=== PATIENT | male | born 1980 | race Caucasian/White ===

== ENCOUNTER 2023-11-29 08:07 | Day surgery (SDC) | payer BC ==
[2023-11-28 11:39] LABS: Absolute Lymphocytes (CBC) 1.7 K/uL (0.7-4.9); Absolute Monocytes 0.8 K/uL (0.1-1.3); Absolute Neutrophil 5.2 K/uL (1.8-8.0); Basophils % 0.3 % (0-1.3); Eosinophils % 0.3 % (0-4.4); Hematocrit 52.3 % (39.6-49.0); Hemoglobin 17.4 g/dL (13.6-17.9); Lymphocytes % 21.3 % (15.3-44.8); MCH 30.9 pg (27.0-35.0); MCHC 33.3 g/dL (32.0-36.0); MCV 92.7 fL (80-100); Monocytes % 10.8 % (3.3-12.3); Neutrophils % 67.3 % (41.7-73.7); Platelets 307 thou/uL (152-406); RBC Red Blood Cell Count 5.64 M/uL (4.33-5.43); Red Cell Distribution Width 13.5 % (12.1-15.2)
[2023-11-28 11:44] LABS: PT Prothrombin Time 11.8 SECONDS (9.5-12.5); PTT, Activated Partial Thromb 30.4 SECONDS (24.3-36.9); Protime INR 1.07
--- NOTE | 2023-11-28 11:48 | RAD REPORT ---
EXAM DESCRIPTION: Kay Reyes (2 Views)11/28/2023 11:31 am CLINICAL HISTORY: Preop for bicep surgery Hypertension COMPARISON: None FINDINGS: The lungs appear clear of acute infiltrate. The heart is normal size IMPRESSION: No acute abnormalities displayed
[2023-11-28 11:50] LABS: Anion Gap 9.9 mEq/L (5.0-15.0); Potassium 3.9 mEq/L (3.5-5.1)
--- NOTE | 2023-11-28 12:12 | EKG ---
Test Date: 2023-11-28 Test Time: 11:18:30 Bee Raiser: KAYLA MEASUREMENT RESULTS: Intervals: Rate: 84 MS: 126 QRSD: 92 QT: 352 QTc: 415 Basile: P: 61 MS: 126 QRS: 80 T: 48 INTERPRETIVE STATEMENTS: Normal sinus rhythm Normal ECG No previous ECG available for comparison Electronically Signed On 11-28-23 12:12:11 CDT by Kofi Mcmanus
[2023-11-29] MEDS: Ringers Lactate 1,000 ML IV ONE (08:30)
[2023-11-29] MEDS ORDERED: KETOROLAC 30 MG/ML INJ ONE (10:06)
[2023-11-29] MEDS ORDERED: LIDOCAINE 2% MPF 5 ML VIAL ONE (10:06)
[2023-11-29] MEDS ORDERED: ONDANSETRON 4 MG/2 ML VIAL ONE (10:06)
[2023-11-29] MEDS ORDERED: FENTANYL CITR 100 MCG/2 ML ONE (10:06)
[2023-11-29] MEDS ORDERED: dexAMETHasone 10 MG/ML VIAL ONE (10:06)
[2023-11-29] MEDS ORDERED: MIDAZOLAM HCL 2 MG/2 ML INJ ONE (10:06)
[2023-11-29] MEDS ORDERED: propofoL 200 MG/20 ML VIAL IV ONE (10:06)
[2023-11-29] MEDS: CEFAZOLIN SODIUM 1 GM/VIAL ONE (10:45)
[2023-11-29] MEDS ORDERED: NS 0.9% VIAL 10 ML ONE (11:22)
[2023-11-29] MEDS ORDERED: EPHEDRINE SULF 50 MG/ML VIAL ONE (11:23)
[2023-11-29] MEDS ORDERED: Ringers Lactate 1,000 ML IV ONE (11:39)
[2023-11-29] MEDS ORDERED: HYDROMORPHONE HCL 1 MG/ML INJ ONE (12:01)
--- NOTE | 2023-11-29 13:35 | P.BOP ---
Preoperative diagnosis: right distal biceps tendon rupture Postoperative diagnosis: same Primary procedure: right anterior elbow exploration Metal Extrusion Supervisor: NONE,NONE Estimated blood loss: 10 cc Specimen: none Findings: see dictation Anesthesia: General Complications: None Implants: none Fluids & blood products: per anesthesia record Transferred to: Recovery Room Condition: Good
[2023-11-29] MEDS: HYDROMORPHONE HCL 1 MG/ML INJ ONE (13:50)
[2023-11-29] MEDS: HYDROCODONE/APAP 5/325 MG TAB ONE (14:49)
[2023-11-29 15:43] VITALS: BP 137/89; TEMP 97.2; O2SAT 95
--- NOTE | 2023-11-30 01:35 | OP ---
Date of Procedure: 11/29/2023 Surgeon: Bear Bess MD Preoperative Diagnosis: Right distal biceps rupture. Postoperative Diagnosis: Right distal biceps rupture. Procedures Performed: Exploration of right elbow with attempted distal biceps repair. Anesthesia: General LMA. Fluids: Per Anesthesia record. Estimated Blood Loss: 10 cc. Complications: None. Implants: None. Indication For Procedure: Keyon is a 43-year-old male, who presented to my clinic with signs, symptom s, and MRI findings consistent with a right distal biceps tendon rupture. I discussed the patient at length risks and benefits associated with operative and nonoperative treatment measures. He express ed understanding and elected to proceed with operative treatment. Description Of Procedure: After informed consent was obtained, the patient was identified in the pre operative holding area. The right upper extremity was marked. The patient was then brought back to the operating room, transferred to the operating table in supine fashion, placed under general LMA an esthesia. The right upper extremity was then prepped and draped in usual sterile fashion. A time-ou t was initiated. The correct patient and procedure confirmed and identified. The patient did receiv e his preoperative prophylactic antibiotics. Approximately, a 5 cm longitudinal incision was made ce ntered over the radial tuberosity. Dissection was then taken down through the fascia and lateral ant ebrachial cutaneous nerve was protected. Dissection was then brought into the antecubital fossa. Th e incision was extended as there are no biceps tendon stump could be identified. The incision was br ought to the antecubital fossa. The wound was then irrigated thoroughly with normal saline. Milking maneuver was placed on the biceps muscle belly to help expose the distal biceps tendon stump; merry suarez, this was not encountered. There did appears to be some tendon scarring near the lacertus fibrosus consistent with a possible incomplete rupture of the tendon. Retraction was then performed proximal and again no tendon itself could be identified. Intraoperatively, I went to speak with the patient' s as the dissection would not demonstrate any significant tendon stump to repair and further dis section may cause potential harm to the patient and she expressed understanding and agreed to proceed with termination of procedure if free tendon stump could not be identified. The wound was again exp lored proximally and distally. The biceps tuberosity was evaluated, which did appear to have some te ndinous stump intact, which did give the appearance of a possible partial rupture with his initial in jury. Exploration proximally demonstrated no tendon, so at that point, it was elected to not debride any further. The wound was then irrigated thoroughly with normal saline. Subcutaneous tissue was a pproximated using 2-0 Vicryl. Skin was approximated using a running subcuticular Monocryl suture. S terile dressings were applied. The patient was awakened and transferred to PACU in stable condition. Postoperative plans were discussed with the and the patient postoperatively and outcome of the surgery. We will likely proceed with a course of observation at this time. However, we will discus s further when the patient follows up next week. He would like to continue with management with phys ical therapy versus possible referral and exploration, possible grafting. He will be nonweightbearin g of his right upper extremity at this time. CV/MODL Voice ID: [id number] Report ID: [id number]
== END 2023-11-29 15:30 | disposition home or self-care (01) ==
LOC: OR 08:07
PROVIDERS: ATTEND Orthopaedic Surgery Sports Medicine
PROC: 0XQ80ZZ Repair Right Upper Arm, Open Approach (ICD-10-PCS; principal; 2023-11-29 10:30)
DX: S46.211A Strain of muscle, fascia and tendon of other parts of biceps, right arm, initial encounter (principal); M25.521 Pain in right elbow
CPT/HCPCS: 93005; 85025; 80048; 36415; 85610; 85730; 71046; 24341; A4216; J2704; J2001; J2250; J3010; J1100; J1170 ×2; J2405; J7120 ×2; J0690